=== PATIENT | male | born 1975 | race Caucasian/White ===

== ENCOUNTER → 2017-05-16 | Outpatient (CLI) | payer BC, OTHER ==
[~2017-05-16] VITALS: Ht 177.8 cm; Wt 108.4 kg
[~2017-05-16] MED LIST: IBUPROFEN200 MG PO; NABUMETONE 750750 M1 PO; ZOLOFT50 MG PO
--- NOTE | ~2017-05-16 | HPC ---
[facility] [address] [place] [address] PAIN MANAGEMENT CONSULTATION Name: PRIETO SPARROW Room #: [facility].#: [id number] Admission: 05/16/17 Attend Phys: Anthony Cedillo DO Discharge: Date of : 79 Report #: [id number] THIS REPORT FOR: //name// CC: Khurram Cedillo DATE OF SERVICE: 05/16/2017 HISTORY OF PRESENT ILLNESS: The patient is a very pleasant 41-year-old gentleman seen less than a year ago in 06/2016 for symptomatic lumbar radiculopathy, given a single epidural injection with overall improvement in baseline pain, in fact his injection was 05/24/2016. At followup, he noted pain was down to about 3/10. He was doing physical therapy for up to 3 months. The patient notes pain has gradually begun to recur, specifically right anterior thigh with some radiation to the posterior gluteal area and into the calf. He notes no specific event seemed to exacerbate pain, but it has been present for 4-6 weeks. He is continued with ibuprofen, ice, heat and physical therapy including stretching. Notes pain as a 5 on a VAS. PHYSICAL EXAMINATION: GENERAL: Shows a 41-year-old gentleman, BMI is 34.3. VITAL SIGNS: Stable as noted on the EMR with modest hypertension (blood pressure 144/91). MUSCULOSKELETAL: Rises from chair using armrest. Gait is tandem. Lumbar flexion is modestly limited. Has some slight decreased right hip flexion strength and modestly positive straight leg raise at 30 degrees on the right. Patellar reflexes are preserved. DIAGNOSTIC DATA: Reviewed diagnostic findings including MRI of the lumbar spine, albeit somewhat dated from 09/30/2015 noting L4-L5 to have central large protruded disk with marked effacement of the anterior thecal sac. ASSESSMENT: Symptomatic lumbar radiculopathy with good improvement following epidural injection nearly a year ago. Ongoing right L4 radicular symptoms. RECOMMENDATION: 1. Continue [id number] nonsteroidal anti-inflammatory medications, physical therapy including stretch. 2. Epidural injection under fluoroscopy today at L4-L5. 3. Follow up in 4 weeks for reevaluation if symptoms are not significantly improved. PROCEDURE: Lumbar epidural steroid injection under fluoroscopy. PROCEDURE NOTE: After both written and informed consent to include risk of [address] [address] PAIN MANAGEMENT CONSULTATION Name: PRIETO SPARROW [id number] Admission: 05/16/17 Attend Phys: Anthony Cedillo DO Discharge: Date of : 79 Report #: [id number] spinal cord damage, increased pain, weakness and dural puncture, the patient was taken to the fluoroscopy suite, placed in the prone position. After sterile prep and drape, a skin wheal with lidocaine was raised. A 22-gauge epidural Tuohy needle was inserted in the midline at the level of L4-L5 with good loss to resistance. Negative aspiration for cerebrospinal fluid or blood was noted. Then 1 mL of Omnipaque under biplanar fluoroscopy showed good spread within the epidural space. This was followed with 80 mg of triamcinolone plus 1 mL of 1.5% preservative-free Xylocaine, 0.5 mL Xylocaine was then injected to flush the needle; it was removed. The patient was monitored for an appropriate period of time and discharged in good and stable condition. <ELECTRONICALLY SIGNED> By: Anthony Cedillo DO 05/18/17 [id number] Anthony Cedillo DO /nt
[2017-05-16 12:33] VITALS: BP 144/91
== END | disposition home or self-care (01) ==
LOC: PAIN 07:22
DX: M54.16 Radiculopathy, lumbar region (principal); G89.29 Other chronic pain; Z98.890 Other specified postprocedural states